=== PATIENT | male | born 1995 | race Two or more races ===

== ENCOUNTER → 2019-10-13 | Outpatient (CLI) | payer OTHER ==
[~2019-10-13] MED LIST: BACTROBAN OINT22 GM TP; CLINDAMYCIN HC300 MG PO; INTESTINEX1 CAP PO
== END | disposition home or self-care (01) ==
LOC: MRI 08:15
PROVIDERS: ATTEND Internal Medicine
DX: M54.5 Low back pain (principal); Z01.810 Encounter for preprocedural cardiovascular examination; E03.8 Other specified hypothyroidism; E55.9 Vitamin D deficiency, unspecified; G54.0 Brachial plexus disorders
CPT/HCPCS: 73223